=== PATIENT | female | born 1940 | race Caucasian/White ===

== ENCOUNTER → 2021-06-17 | Outpatient (CLI) | payer MEDICARE, BC ==
[~2021-06-17] VITALS: Ht 162.6 cm; Wt 93.0 kg
[~2021-06-17] MED LIST: ALENDRONATE SOD70 MG PO; ALLOPURINOL 10100 M1 PO; ASA81BEC PO; CARVEDILOL25 MG PO; CO Q-1010 MG PO; COZAAR 25 MG TA25 M2 PO; FLAXSEED OIL1000 MG PO; HUMALOG100 UNIT/1 SUBQ; LANTUS SUBQ; LASIX 40 MG TAB40 MG PO; LIPITOR 40 MG T40 M1 PO; METFORMIN HCL500 MG PO; PEPCID20 MG PO; SPIRONOLACTONE25 M1 PO; TURMERIC 500 M1 EACH; VITAMIN B-121000 MC2 PO; VITAMIN D310 MC4 PO
[2021-06-17 09:53] VITALS: BP 152/50
[2021-06-17 10:15] LABS: HEMATOCRIT 37.4 % (37.0-47.0); HEMOGLOBIN 12.4 gm/dL (12.0-15.0); MCH 30.9 pg (26.0-34.0); MCHC 33.3 g/dL (28.0-37.0); MCV 92.7 fL (80.0-100.0); MPV 10.3 fl. (7.2-11.1); RBC 4.03 mil/uL (4.20-5.00); RDW-CV 14.3 % (10.5-14.5)
--- NOTE | 2021-06-17 10:16 | EKG ---
[place] [address] ELECTROCARDIOGRAM REPORT Name: MARJAN KHANJOSÉ MIGUEL Torres Room: [facility]#: [id number] Admission: 06/17/21 Attend Phys: Joshua Young, Discharge: Date of : 40 Date of Service: 06/17/2155 Report #: [id number] THIS REPORT FOR: //name// [facility] Test Date: 2021-06-17 Test Time: 09:55:04 Pat Name: LUIS KHAN Department: Room: Gender: F [employer]: RAFAEL : 1940 Requested By: Joshua Young Order Number: [id number] Arpita MD: Greg Ly Measurements Intervals [place] Rate: 72 P: NV: 138 QRS: 136 QRSD: 153 T: 7 QT: 449 QTc: 492 Interpretive Statements Atrial-ventricular dual-paced complexes No further analysis attempted due to paced rhythm No previous ECG available for comparison Electronically Signed On 06-17-2021 10:16:41 CDT by Greg Ly [email or web address] <ELECTRONICALLY SIGNED> By: Greg Ly MD, [facility] 06/17/21 [id number] Greg Ly MD, [facility] /EPI
[2021-06-17 10:24] LABS: CALCIUM 9.2 mg/dL (8.5-10.1); CREATININE 1.6 mg/dL (0.6-1.3); POTASSIUM 4.2 mmol/L (3.5-5.1)
[2021-06-17 10:29] LABS: TOTAL BILIRUBIN 0.7 mg/dL (<0.1-1.0); TOTAL PROTEIN 7.2 g/dL (6.4-8.2)
[2021-06-17 10:30] LABS: APTT 26.8 Seconds (25.0-31.3); INR 1.1; PROTIME 11.8 Seconds (9.20-11.50)
[2021-06-17 11:58] VITALS: BP 135/46
--- NOTE | 2021-06-17 15:11 | CARD ---
[address] [address] CARDIAC CATH REPORT Name: LUIS KHAN Room: [facility]#: [id number] Admission: 06/17/21 Attend Phys: Joshua Young MD Discharge: Date of : 40 Report #: [id number] THIS REPORT FOR: cc: BRYON MCKINNON MD Physician not on staff Joshua Young MD [facility] ~ APPROVED REPORT Study performed: 06/17/2021 10:58:02 Event Personnel: Joshua Young Research Soil Scientist, Loan Calle RN RN, Leodan Canales Scrub, Gabi Warner RTR Monitor Exam: BI-V ICD Generator Change Indications: ICD generator at elective replacement. The patient is a 81 year-old female with a history of Nonischemic cardiomyopathy.. Conscious Sedation Start time: 11:18 End Time: 11:32 Fentanyl 25 mcg Versed 1 mg Implanted Devices: Bi-V Generator- Biotronik Rivacor 7 HF-T QP SN- [id number] Explanted Devices: [place] [employer], Quadra Assura, model [id number], serial #[id number] biventricular ICD pulse generator Procedure The patient underwent informed consent. We discussed the details of the procedure including the risks, which include, but not limited to bleeding, infection, vascular damage, cardiac perforation, and pneumothorax. She understood these risks and was willing to proceed. As such, she was brought to the EP/Cardiac Catheterization laboratory in a fasting and sedated state and prepped and draped in a The patient underwent conscious sedation, with no related complications. The patient was brought to the EP/Cardiac Catheterization laboratory and the left chest and shoulder were prepped and draped in a sterile manner. During this case, Fluoroscopy and no contrast were used for imaging. The left subclavian region was infiltrated with 2% Lidocaine with Epinephrine subcutaneous anesthesia. [place] [address] CARDIAC CATH REPORT Name: ERINMARJANJOSÉ MIGUEL Macdonald Room: [facility]#: [id number] Admission: 06/17/21 Attend Phys: Joshua Young MD Discharge: Date of : 40 Report #: [id number] in the left upper chest cavity. Capturing and sensing thresholds were verified. Electrode Parameters P Wave: 4.1 mV R Wave: 14.0 mV Atrial Threshold: 1.0 V at 0.40 ms Ventricular Threshold: 0.8 V at 0.40 ms Atrial Resistance: 448 ohms Ventricular Resistance: 686 ohms LV wave: 24 mV LV threshold 0.9 V at 0.40 ms LV pacing impedance 555 ohms Generator Change The generator change was then secured using 2.0 vicryl sutures. The subcutaneous pocket was irrigated with ancef antibiotic solution.The lead was attached to the appropriate receptacle on the new pulse generator and setscrews firmly tightened to insure adequate contact and stability. The lead and pulse generator were placed into the subcutaneous pocket. Sharp and sponge counts were confirmed to be correct. At this time the pocket was closed subcutaneously with a 2.0 Vicryl and the skin was closed with a 4.0 Vicryl. The operative site was dressed in sterile fashion with benzoin spray, steri strips, and stratabsorb and the patient was transferred to the floor in stable condition. Complications The patient tolerated the procedure well and there were no complications associated with the procedure. Findings Specimens Removed: No Estimated Blood Loss: 5 ml Conclusion 1. Biventricular ICD generator at elective replacement. 2. Successful replacement of BiV [place] [address] CARDIAC CATH REPORT Name: LUIS KHAN Room: [facility]#: [id number] Admission: 06/17/21 Attend Phys: Joshua Young MD Discharge: Date of : 40 Report #: [id number] 1. Follow-up site check in 1 week. 2. Follow-up device interrogation 1 to 2 months. <ELECTRONICALLY SIGNED> By: Joshua Young MD, [facility] 06/17/21 1511 1511 1511Joshua Young MD, FACC /INF
== END | disposition home or self-care (01) ==
LOC: M.CL 09:32
PROVIDERS: ATTEND Internal Medicine Cardiovascular Disease
DX: Z45.02 Encounter for adjustment and management of automatic implantable cardiac defibrillator (principal); I42.9 Cardiomyopathy, unspecified; I10 Essential (primary) hypertension; E11.9 Type 2 diabetes mellitus without complications; Z98.890 Other specified postprocedural states; Z79.899 Other long term (current) drug therapy; Z95.2 Presence of prosthetic heart valve; Z79.01 Long term (current) use of anticoagulants; Z20.822 Contact with and (suspected) exposure to COVID-19

== ENCOUNTER → 2021-08-02 | Outpatient (CLI) | payer MEDICARE, BC ==
[2021-08-02 09:11] LABS: CHOLESTEROL 97 mg/dL (<200); HDL CHOLESTEROL 52 mg/dL (>40); LDL CHOLESTEROL 32 mg/dL (<100); SERUM ASSESSMENT Clear; TC:HDL 1.9 Ratio (Not establshd); TRIGLYCERIDE 66 mg/dL (<150); VLDL 13 mg/dL (<40)
== END ==
LOC: M.LAB 08:39
PROVIDERS: ATTEND Nurse Practitioner
DX: E78.5 Hyperlipidemia, unspecified (principal); R79.89 Other specified abnormal findings of blood chemistry